=== PATIENT | female | born 1960 | race Caucasian/White ===

== ENCOUNTER 2023-07-05 06:25 | Day surgery (SDC) | payer OTHER, SELFPAY ==
[2023-07-05 11:25] VITALS: BMI 27.9
[2023-07-05 11:35] VITALS: BP 133/84
[2023-07-05 11:48] VITALS: BMI 27.9
[2023-07-05 14:07] VITALS: BP 110/59
[2023-07-05 14:15] VITALS: BP 110/69
[2023-07-05 14:30] VITALS: BP 124/68
== END 2023-07-05 14:35 | disposition home or self-care (01) ==
LOC: GI 06:25
PROVIDERS: ATTENDING PHYSICIAN Internal Medicine Gastroenterology
DX: D12.1 Benign neoplasm of appendix (principal); D12.2 Benign neoplasm of ascending colon; D12.3 Benign neoplasm of transverse colon; K57.30 Diverticulosis of large intestine without perforation or abscess without bleeding; K64.0 First degree hemorrhoids
CPT/HCPCS: 45390; 45385; 88305

== ENCOUNTER → 2024-01-01 06:32 | Day surgery (SDC) | payer OTHER, SELFPAY | LOC: GI 06:32 | PROVIDERS: ATTENDING PHYSICIAN Specialist | DX: Z12.11 Encounter for screening for malignant neoplasm of colon (principal); K63.5 Polyp of colon; Z86.010 Personal history of colon polyps; Z98.890 Other specified postprocedural states | CPT/HCPCS: 45380; 88305 ==

== ENCOUNTER 2024-06-22 13:33 | Emergency (ER) | payer OTHER, SELFPAY ==
[2024-06-22 13:40] VITALS: BP 135/83
[2024-06-22 14:08] LABS: % Basophils 0.8 % (0-2); % Immature Granulocytes 0.5 % (0-0.5); % Lymphocytes 18.7 % (20.5-51.1); % Monocytes 14.7 % (1.7-9.3); % Neutrophils 65.3 % (42.2-75.2); Absolute Lymphocytes 0.7 10^3/uL (1.2-3.4); Absolute Monocytes 0.6 10^3/uL (0.1-0.6); Absolute Neutrophils 2.4 10^3/uL (1.4-6.5); Hemoglobin 14.1 g/dL (12.0-16.0); Mean Corp Hgb Conc. 33.6 g/dL (33.0-37.0); Mean Corpuscular Hgb 32.6 pg (27.0-31.0); Mean Platelet Volume 9.5 fL (7.4-10.4); Nucleated Red Blood Cells % 0 %; Platelet Count 118 10^3/uL (130-400); Red Blood Cell Count 4.33 10^6/uL (4.20-5.40); Red Cell Dist. Width 12.6 % (11.5-14.5); White Blood Cell Count 3.7 10^3/uL (4.8-10.8)
[2024-06-22 14:25] LABS: ALT (SGPT) 38 U/L (0-35); AST (SGOT) 48 U/L (14-36); Albumin 4.7 g/dl (3.5-5.0); Alkaline Phosphatase 104 U/L (38-126); Blood Urea Nitrogen 8 mg/dl (7-17); Calcium 9.1 mg/dl (8.4-10.2); Carbon Dioxide 24 mmol/L (22-30); Chloride 102 mmol/L (98-107); Glucose 133 mg/dl (70-99); Sodium 137 mmol/L (135-145); Total Bilirubin 0.7 mg/dl (0.2-1.3); Total Protein 7.3 g/dl (6.3-8.2); eGFR > 60.00
[2024-06-22 14:36] LABS: Troponin I < 0.012 ng/ml
[2024-06-22 14:40] VITALS: BMI 27.5
[2024-06-22 14:42] VITALS: BP 144/83
[2024-06-22 15:00] VITALS: BP 123/83
[2024-06-22 15:01] LABS: COVID-19 Antigen Negative (Negative)
[2024-06-22] MEDS: VIBRAMYCIN 100 MG PO (15:11)
--- NOTE | 2024-06-22 16:11 | ED.GENMED ---
History of Present Illness
General
Chief Complaint: Breathing Problem
Source: patient
Exam Limitations: none
Time Seen by Provider: 06/22/24 14:41
Nursing documentation reviewed up to this point in time: agreed with
History of Present Illness
History of Present Illness:
64-year-old female presenting to the emergency department today with concerns of shortness of breath cough since yesterday. She does claim to have some mild upper back pain but claims that she always has this and it is a chronic pain. She was
given her home pain medications here with relief of symptoms.
Past History
Past History
ED Past Medical History: Cancer (Right kidney kidney), COPD, HTN and Hypercholesterolemia
ED Past Surgical History: Orthopedic (Back surgery) and Other (Right nephrectomy, brain aneurysm with clips)
Social History
Tobacco: Smoker
Alcohol: None
Personal: Single
Living: alone
Review of Systems
Review of Systems
Allergies reviewed?: Yes
All Other Systems: ROS reviewed and negative except as documented in HPI and ROS
Phy Exam
Physical Exam
Physical Exam:
GENERAL: Alert , in no apparent distress
EYE: pupils equal and reactive
NECK: Supple, no significant adenopathy.
ENT: o/p clr, mmm.
CARDIAC: Regular rate and rhythm .
LUNGS: Clear breath sounds bilaterally, no acute respiratory distress, no wheezes/rales/rhonchi
ABDOMEN: Soft, without focal tenderness, no r/g, no cvat
NEUROLOGICAL: Alert and oriented, no focal neuro deficits
SKIN: Warm and dry, skin intact.
MUSCULOSKELETAL: No edema, well perfused.
PSYCH: Normal and appropriate interaction.
Scores
Heart Failure Risk
Heart Failure Risk Score: Not Applicable
Sepsis
Sepsis Screening
Sepsis Assessment: Sepsis Ruled Out
Sepsis Screen
Sepsis Screen: Sepsis Ruled Out
Date: 06/22/24
Time: 16:17
Course
Orders/Labs/Results
Orders:
Orders
06/22/24 13:45
Electrocardiogram (*1) Urgent
Reason for Study: Other
Other Reason for Exam: Respiratory Distress
Cardiac Monitoring- Treatment ONCE
EKG- Treatment ONCE
IV Insert/Care/Rem.- Treatment PRN
CR Chest - 2 Views Urgent
Comment:
Reason For Exam: respiratory distress
O2 Therapy [RESP] Urgent
Titrate/Wean O2 to maintain O2 sat greater than (%): 93
Special Instructions: TO MAINTAIN CONTINUOUS O2 SATS >/= 93%
Pulse Ox/cont/shift [RESP] Urgent
Quantity: 1
Special Instructions: continuous pulse ox
06/22/24 13:55
Complete Blood Count/With Diff Urgent
Comprehensive Metabolic Panel Urgent
Troponin I Urgent
06/22/24 14:42
COVID-19 Antigen Urgent
Source: Nasal Swab
Influenza A+B Rapid Molecular Urgent
AYAN Source: Nasal Swab
Specimen Description:
06/22/24 15:02
Doxycycline [Vibramycin] 100 mg PO NOW STA
Abnormal Lab Results
06/22/24
13:55
WBC 3.7 L 10^3/uL
(4.8-10.8)
MCH 32.6 H pg
(27.0-31.0)
Plt Count 118 L 10^3/uL
(130-400)
Absolute Lymphs (auto) 0.7 L 10^3/uL
(1.2-3.4)
Lymphocytes % 18.7 L %
(20.5-51.1)
Monocytes % 14.7 H %
(1.7-9.3)
Glucose 133 H mg/dl
(70-99)
AST 48 H U/L
(14-36)
ALT 38 H U/L
(0-35)
06/22/24 13:55
06/22/24 13:55
Vital Signs
Initial and Last Documented VS:
Initial Vital Signs
Temp Pulse Resp BP Pulse Ox
98.1 F 130 22 135/83 95
06/22/24 13:40 06/22/24 13:40 06/22/24 13:40 06/22/24 13:40 06/22/24 13:40
Last Documented Vital Signs
Temp Pulse Resp BP Pulse Ox
98.1 F 72 21 123/83 97
06/22/24 13:40 06/22/24 15:00 06/22/24 15:00 06/22/24 15:00 06/22/24 15:00
MDM/Problems Addressed
MDM/Problems Addressed:
64-year-old female presenting to the emergency department today with concerns of cough shortness of breath starting yesterday. On x-ray there appears to be a small pneumonia to the right middle lobe. This was also heard on lung examination.
Patient was given doxycycline and watched here for multiple hours. Heart rate was normal throughout ER stay normal pulse ox throughout ER stay patient in no distress and sleeping during most of the visit. Patient does appear stable for outpatient
management. Additional testing without emergent findings. Able to ambulate with pulse ox remaining in the mid 90s.
*Critical Care Note
Total Time (30-74mins, 75-104mins- exclusive of procedures): Not Applicable
ED Attending Note
-
Portions of this chart may have been created with voice recognition software.� Occasional wrong word or��sound alike� substitutions may have occurred due to the inherent limitations of voice recognition software.
Discharge Plan
Departure
Patient Disposition: Home (Routine Discharge)
Date of Disposition: 06/22/24
Time of Disposition: 16:11
Patient with high blood pressure during this ER visit?: No
Condition: Good
Covid-19: Not Applicable
Discharge Problem:
Pneumonia
Instructions: Pneumonia
Prescriptions:
New
doxycycline hyclate 100 mg tablet
100 mg PO BID 7 Days Qty: 14 0RF
No Action
atorvastatin [Lipitor] 40 mg Tablet
40 mg PO QPM
bupropion HCl [Wellbutrin SR] 150 mg Tablet Sustained-Release 12 Hr
150 mg PO BID
venlafaxine [Effexor XR] 75 mg Capsule,Extended Release 24hr
75 mg PO HS
levothyroxine [Synthroid] 25 mcg Tablet
25 mcg PO DAILY
oxycodone-acetaminophen 10-325 mg Tablet
1 tab PO QID
Patient Comments:
12/21/2022: last filled 11/26/22, 120 tabs for 30 days from [facility]
trazodone 100 mg Tablet
100 mg PO HS PRN (Reason: sleep)
montelukast [Singulair] 10 mg Tablet
10 mg PO HS
albuterol sulfate [ProAir HFA] 90 mcg/actuation Hfa Aerosol Inhaler
2 puff INHALATION R QIDPRN PRN (Reason: sob)
topiramate 50 mg Tablet
200 mg PO HS
polyethylene glycol 3350 [Miralax] 17 gram powder in packet
17 g PO DAILY PRN (Reason: constipation)
Referrals:
ESCUDERO,ANEW [Other]
Activity Restrictions/Additional Instructions:
You came to the emergency department today with concerns of respiratory symptoms. Here you had a reassuring assessment your chest x-ray did show possible pneumonia. Please start the doxycycline taken twice daily over the next week and follow-up
closely with your primary care doctor. Immediately return for any worsening or progressive symptoms.
Interventions
Interventions:
*Risk Screen - Suicide Last Done: 06/22/24 13:40
*General Assessment Last Done: 06/22/24 14:40
*Neglect/Abuse Screening Last Done: 06/22/24 13:40
ED- Fall Risk Assessment Last Done: 06/22/24 14:40
*ED COVID-19 Vaccine History Last Done: 06/22/24 14:40
ED- Cardiac Assessment Last Done: 06/22/24 14:40
ED- Pulmonary Assessment Last Done: 06/22/24 14:40
Discharge Date and Time
Print Language: BOLIVIAN
== END 2024-06-22 16:54 | disposition home or self-care (01) ==
LOC: EMR 13:33
PROVIDERS: Emergency Medicine; EMERGENCY PHYSICIAN Student in an Organized Health Care Education/Training Program
DX: J18.9 Pneumonia, unspecified organism (principal); J44.0 Chronic obstructive pulmonary disease with (acute) lower respiratory infection; E78.00 Pure hypercholesterolemia, unspecified; I10 Essential (primary) hypertension; F17.200 Nicotine dependence, unspecified, uncomplicated; Z85.528 Personal history of other malignant neoplasm of kidney; Z90.5 Acquired absence of kidney; Z11.52 Encounter for screening for COVID-19
CPT/HCPCS: 99285; 71046; 80053; 84484; 85025; 87502; 87811; 93005